=== PATIENT | female | born 1975 | race American Indian/Alaskan Native ===

== ENCOUNTER 2020-12-20 09:41 | Emergency (ER) | payer SELFPAY ==
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
[2020-12-20 11:16] LABS: Basophils # (Auto) 0.1 K/mm3 (0.0-0.1); Eosinophils # (Auto) 0.2 K/mm3 (0.0-0.4); Hematocrit 41.8 % (30.3-42.9); Hemoglobin 13.6 gm/dl (10.1-14.3); Lymphocytes # (Auto) 2.9 K/mm3 (1.2-5.4); Lymphocytes % (Auto) 27.8 % (13.4-35.0); Mean Corpuscular HGB Conc 32 % (30-34); Mean Corpuscular Volume 76 fl (79-97); Monocytes # (Auto) 0.7 K/mm3 (0.0-0.8); Monocytes % (Auto) 6.8 % (0.0-7.3); Platelet Count 342 K/mm3 (140-440); Red Cell Distribution Width 14.8 % (13.2-15.2)
--- NOTE | 2020-12-20 11:28 | XRay Report ---
CHEST 2 VIEWS INDICATION / CLINICAL INFORMATION: cp. COMPARISON: None available. FINDINGS: SUPPORT DEVICES: None. HEART / MEDIASTINUM: No significant abnormality. LUNGS / PLEURA: No significant pulmonary or pleural abnormality. No pneumothorax. ADDITIONAL FINDINGS: No significant additional findings. IMPRESSION: 1. No acute findings. Signer Name: Hermann Perez DO Signed: 12/20/2020 11:24 AM Workstation Name: [id number]
[2020-12-20 11:40] LABS: Alanine Aminotransferase 22 units/L (7-56); Albumin 4.3 g/dL (3.9-5); BUN/Creatinine Ratio 20; Blood Urea Nitrogen 10 mg/dL (7-17); Calcium 9.5 mg/dL (8.4-10.2); Hemolysis Index 3
[2020-12-20 12:50] LABS: Amphetamine Screen,Urine Negative; Benzodiazepines Screen,Urine Negative; Cannabinoid Screen,Urine Negative; Cocaine Screen,Urine Negative; Methadone Screen,Urine Negative; Opiate Screen,Urine Negative
[2020-12-20 13:40] LABS: Mucus,Urine FEW /HPF
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
[2020-12-20 14:26] LABS: Bilirubin,Urine Negative (Negative); Color,Urine Yellow (Yellow)
[2020-12-20 14:27] LABS: Blood,Urine Large (Negative)
[2020-12-20 14:28] LABS: Urobilinogen,Urine < 2.0 mg/dL (<2.0)
--- NOTE | 2020-12-20 14:34 | Event Note ---
Date: 12/20/[address] consulted with me concerning this patient. Says the patient has been having severe anxiety attacks to the point where she can hardly work or walk. States doctors have ruled out medical causes from several tests and hospitals. Will start Vistaril 50mg po BID prn anxiety 60 tabs 0 refills. The patient to establish outpatient psychiatry and follow up in 7 to [address] judge will speak with nurse and have her call it in.
[2020-12-20 15:04] VITALS: BP 132/88
--- NOTE | 2020-12-21 11:45 | Electrocardiograph Report ---
[facility] Test Date: 2020-12-20 Test Time: 10:06:36 Pat Name: JESSEE PRESCOTT Department: Room: Gender: F [employer] Consultant: CARLITA : 1975 Requested By: SUNIL IVORY Order Number: [id number] Reading MD: Alfredo Rich Measurements Intervals Titus Rate: 72 P: 70 ND: 151 QRS: 6 QRSD: 103 T: -19 QT: 412 QTc: 452 Interpretive Statements Sinus rhythm Inferior infarct, old No previous ECG available for comparison Electronically Signed On 12-21-2020 11:45:13 EST by Alfredo Rich
== END 2020-12-20 15:04 | disposition home or self-care (01) ==
LOC: ED 09:41
DX: F41.9 Anxiety disorder, unspecified (principal); F43.10 Post-traumatic stress disorder, unspecified; Z98.890 Other specified postprocedural states; Z79.899 Other long term (current) drug therapy
CPT/HCPCS: 36415; 71046; 80053; 80307; 80320; 81001; 85025; 93005; 99285; G0480